=== PATIENT | male | born 1950 | race Caucasian/White ===

== ENCOUNTER 2018-08-16 14:21 | Outpatient (CLI) | payer OTHER ==
--- NOTE | 2018-08-16 17:46 | MRI ---
MRI OF RIGHT ELBOW WITHOUT CONTRAST: 08/16/18 HISTORY: Biceps tendon tear. COMPARISON: None. FINDINGS: TENDONS: There is severe tendinosis and interstitial marking tearing of the biceps tendon extending from the level of the joint line to the insertion on the radial tuberosity. There is remodeling of the radial tuberosity from chronic interstitial delamination type tearing and insertion of fluid through the radha tprint. No retraction. No full thickness perforation. The brachial insertion is normal. The triceps tendon is intact. There is mild partial tearing of the common extensor, common flexor tendons. SOFT TISSUES: There is extensive bicipital radial bursitis with fatty metaplasia. There are bodies within the bicip ital radial bursa. The bursa itself measures in total 2.5 x 2.4 x 6.1 cm (trans x AP x CC). MUSCLES: Muscle signal and bulk is normal. NEUROVASCULAR BUNDLES: Intact. LIGAMENTS: The lateral ulnar collateral ligament, ulnar collateral ligament, lateral collateral ligaments are in tact. There is a deep sulcus of likely an old partial tear of the anterior band of ulnar collateral l igament with a deep T sulcus sign and small subcortical cyst formation of the sublime tubercle. Large subcortical cysts are present on the ulnar at the ulnar trochlear joint. There is overlying ful l thickness cartilage fissuring. There is a moderate sized joint effusion. IMPRESSION: 1. High grade interstitial type tearing of the biceps tendon insertion of the radial tuberosity with marked tendinosis. No full thickness rupture. No retraction of fibers. 2. Very large chronically distended bicipital radial bursa with bicipital radial bursitis as wel l as fatty metaplasia of synovium and multiple internal bodies. POS: JAM
== END 2018-08-16 14:22 | disposition home or self-care (01) ==
LOC: TBSIIMAG 14:21
PROVIDERS: ATTEND Orthopaedic Surgery
DX: M25.521 Pain in right elbow (principal); S46.211A Strain of muscle, fascia and tendon of other parts of biceps, right arm, initial encounter; M77.9 Enthesopathy, unspecified; M70.31 Other bursitis of elbow, right elbow

== ENCOUNTER 2019-06-13 08:45 | Outpatient (CLI) | payer OTHER ==
--- NOTE | 2019-06-13 11:10 | RAD ---
SIOMARA [facility] VIEW: Date: 06/13/19 INDICATION: MRI clearance. 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 COMPARISON: None. FINDINGS: The patient is edentulous. Paranasal sinuses are clear. Orbital rims are intact. No suspicious metall ic radiopaque foreign body seen within the region of the orbits. IMPRESSION: MRI clearance examination. No retained metallic density seen within the orbits. POS: OFF
[2019-06-13] MEDS ORDERED: Gadobenate Dimeglumine 529 MG/1 ML (20ML VIAL) ONE (11:42)
--- NOTE | 2019-06-13 14:21 | MRI ---
MRI RIGHT ELBOW WITH AND WITHOUT CONTRAST: INDICATIONS: History of traumatic partial-thickness tear of the biceps tendon. COMPARISON: MRI right elbow dated 08/16/2018. TECHNIQUE: Multiplanar, multisequence MR images were obtained of the right elbow with and without contrast. The patient received 17 mL of MultiHance. FINDINGS: As seen on the comparison examination there is an interstitial type tear involving the distal biceps tendon, just proximal to its insertion. The degree of the tear appears stable since the comparison ex amination; however, there is worsening tenosynovitis surrounding the biceps tendon with worsening syn ovial proliferation. Portions of the synovial proliferation are T1 hyperintense consistent with some fatty deposition and mild metaplasia. There are also some punctate regions of low signal intensity in volving some of the synovial fronds, particularly on image 31 of series 7. There is some mild enhance ment of the synovium surrounding the biceps tendon attachment. The degree of tenosynovitis does exten d now in between the proximal radius and ulna, on image 31 of series 3. The brachialis, triceps, common flexor and extensor portions appear within normal limits. The ulnar n erve has a normal signal intensity. The visualized median neurovasculature appears within normal limi ts. Small subchondral cyst like abnormality is seen again within the region of the coronoid process. The ulnar collateral ligament, radial collateral ligament and lateral ulnar collateral ligament appea r intact. IMPRESSION: Stable high grade interstitial tear of the distal biceps tendon with worsening surrounding chronic bi ceps tenosynovitis. POS: OFF
== END 2019-06-13 08:46 | disposition home or self-care (01) ==
LOC: BICMRI 08:45
PROVIDERS: ATTEND Orthopaedic Surgery
DX: S46.211A Strain of muscle, fascia and tendon of other parts of biceps, right arm, initial encounter (principal); M65.9 Synovitis and tenosynovitis, unspecified
CPT/HCPCS: 70210; 82565; A9577

== ENCOUNTER 2020-04-23 07:52 | Outpatient (CLI) | payer OTHER ==
--- NOTE | 2020-04-23 08:30 | MMO ---
Bilateral MAMMO Bilat Diag [facility]. CLINICAL HISTORY: Patient is 69 years old and is seen for diagnostic exam. The patient has no family history of breast cancer. The patient has no personal history of cancer. VIEWS: The views performed were: bilateral craniocaudal with tomosynthesis; bilateral mediolateral oblique with tomosynthesis; and bilateral mediolateral with tomosynthesis. This study has been interpreted with the assistance of computer-aided detection. MAMMOGRAM FINDINGS: The breasts are almost entirely fat. There is a flame-shaped retroareolar density , consistent with gynecomastia. There are no suspicious masses, suspicious calcifications, or new areas of architectural distortion. IMPRESSION: THERE IS NO MAMMOGRAPHIC EVIDENCE OF MALIGNANCY. THE RESULTS OF THIS EXAM WERE SENT TO THE PATIENT. ACR BI-RADS Category 2 - Benign finding MAMMOGRAPHY NOTE: 1. A negative mammogram report should not delay a biopsy if a dominant of clinically suspicious mass is present. 2. Approximately 10% to 15% of breast cancers are not detected by mammography. 3. Adenosis and dense breasts may obscure an underlying neoplasm. Reported by: BRITANY BELTRAN MD Electonically Signed: [id number]
== END 2020-04-23 07:53 | disposition home or self-care (01) ==
LOC: BICMAMMO 07:52
PROVIDERS: ATTEND Student in an Organized Health Care Education/Training Program
DX: N64.59 Other signs and symptoms in breast (principal)
CPT/HCPCS: 77066; G0279

== ENCOUNTER 2021-01-13 12:10 | Outpatient (CLI) | payer OTHER | END 2021-01-13 12:11 | disposition home or self-care (01) | LOC: BICMRI 12:10 | PROVIDERS: ATTEND Orthopaedic Surgery | DX: S46.211A Strain of muscle, fascia and tendon of other parts of biceps, right arm, initial encounter (principal); M71.021 Abscess of bursa, right elbow; S46.111A Strain of muscle, fascia and tendon of long head of biceps, right arm, initial encounter; M75.21 Bicipital tendinitis, right shoulder; M65.88 Other synovitis and tenosynovitis, other site; D17.21 Benign lipomatous neoplasm of skin and subcutaneous tissue of right arm | CPT/HCPCS: 82565 ==